=== PATIENT | male | born 1985 | race African-American/Black ===

== ENCOUNTER 2018-09-12 06:11 | Emergency (ER) | payer OTHER ==
[~2018-09-12] VITALS: Ht 170.2 cm; Wt 127.0 kg
[2018-09-12 06:20] VITALS: BP 187/115
[2018-09-12] MEDS ORDERED: SILV20CR14 TP (06:22)
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
[2018-09-12] MEDS ORDERED: DIPHTH,PERTUSS(ACELL),TET TOX 0.5 ML DISP.SYRIN. VAX IM ONE (07:00)
== END 2018-09-12 07:00 | disposition home or self-care (01) ==
LOC: ER 06:11
DX: T20.49XA Corrosion of unspecified degree of multiple sites of head, face, and neck, initial encounter (principal); F17.210 Nicotine dependence, cigarettes, uncomplicated; Y93.89 Activity, other specified; Y92.89 Other specified places as the place of occurrence of the external cause; Y99.0 Civilian activity done for income or pay
CPT/HCPCS: 90471; 90715; 99283